=== PATIENT | female | born 1965 | race Caucasian/White ===

== ENCOUNTER 2021-08-28 14:02 | Emergency (ER) | payer BC, OTHER ==
--- OUTSIDE RECORDS SUMMARY | 2021-08-28 14:07 | XMS REPORT | Continuity of Care Document ---
:1965 Author Organization [facility] t Address [address] [place] [address] Care Team Providers Name Role Phone Omi SAEED Attending Clinician Unavailable Nader MYRICK D Attending Clinician Unavailable [facility] Attending Clinician Unavailable Griffin YORK Attending Clinician Payers Payer Name Policy Type Policy Number Effective Date Expiration Date S ource [facility] - [id number] 2019 OUT OF STATE 00:00:00 SRC AN [employer]ET[employer] [id number] 2012 COMPANY 00:00:00 Problems Condition Condition Condition Status Onset Resolution Last Treating Co mments Source Name Details Category Date Date Treatment Clinician Date No known No known Disease Unive rs active active ity of problems problems [facility] Allergies, Adverse Reactions, Alerts Allergy Allergy Status Severity Reaction(s) Onset Inactive Treating Comm ents Source Name Type Date Date Clinician SULFA Drug Active N/V Univers (SULFONA Class 9-29 ity of MIDE 00:00: [place] ANTIBIOT 00 Medical ICS) Branch Sulfa Propensi Active Nausea Univers (Sulfona ty to and/or 9-29 ity of mide adverse Vomiting 00:00: [place] Antibiot reaction 00 Medica l ics) s Branch Social History Social Habit Start Date Stop Date Quantity Comments Source Sex Assigned At [facility] Medical Branch Exposure to Yes [facility] SARS-CoV-2 (event) Medica l Branch Alcohol intake 2020-03-17 2020-03-17 [facility] 00:00:00 00:00:00 Medical Branch Smoking Status Start Date Stop Date Source Never smoker [facility] Medical Branch Medications Ordered Filled Start Stop Current Ordering Indication Dosage Frequency Signature Comments Components Source Medication Medication Date Date Medication? Clinician (SIG) Name Name cyclobenzap Yes TAKE 1 Univ ers rine 9-19 TABLET BY ity of (FLEXERIL) 00:00[place] 5 [place] tablet 00 TIMES A Medic al DAY Branch NEEDED FOR MUSCLE SPASM ibuprofen Yes TAKE 1 Univer s (MOTRIN) 9-19 TABLET BY ity of 800 mg 00:00: MOUTH [place] tablet 00 EVERY 8 Medical HOURS Branch NEEDED FOR PAIN CONTROL cyclobenzap Yes TAKE 1 Univ ers rine 9-19 TABLET BY ity of (FLEXERIL) 00:00: [place]TH 3 [place] 5 mg tablet 00 TIMES A Medic al DAY Branch NEEDED FOR MUSCLE SPASM ibuprofen Yes TAKE 1 Univer s (MOTRIN) 9-19 TABLET BY ity of 800 mg 00:00: MOUTH [place] tablet 00 EVERY 8 Medical HOURS Branch NEEDED FOR PAIN CONTROL zolpidem Yes TAKE 1 Univers (AMBIEN) 5 9-16 TABLET BY ity of mg tablet 00:00[place] 00 BEDTIME [place] Branch zolpidem Yes TAKE 1 Univers (AMBIEN) 5 9-16 TABLET BY ity of mg tablet 00:00[place]TH [place] 00 BEDTIME [place] Branch atorvastati Yes 10mg Take 10 mg Univers n (LIPITOR) 9-15 by mouth ity of 10 mg 00:00: daily. [place] tablet Medical Branch atorvastati Yes 10mg Take 10 mg Univers n (LIPITOR) 9-15 by mouth ity of 10 mg 00:00: daily. [place] tablet 00 Medical Branch PREMARIN Yes TAKE 1 Univers 0.625 mg 8-18 TABLET ity of tablet 00:00: EVERY DAY Medical Branch metoprolol Yes 100mg Take 100 Un valentine succinate 8-18 mg by ity of XL (TOPROL 00:00: mouth [place] XL) 100 mg 00 daily. Medical 24 hr Branch tablet PREMARIN Yes TAKE 1 Univers 0.625 mg 8-18 TABLET ity of tablet 00:00: EVERY DAY Medical Branch metoprolol Yes 100mg Take 100 Un valentine succinate 8-18 mg by ity of XL (TOPROL 00:00: mouth [place] XL) 100 mg 00 daily. Medical 24 hr Branch tablet levothyroxi Yes TAKE 1 Univ ers ne 7-17 TABLET ity of (SYNTHROID) 00:00: EVERY DAY [place] 125 mcg 00 Medical tablet Branch VICTOZA Yes INJECT 1.8 Univ ers 3-DUSTIN 0.6 7-17 MG ity of mg/0.1 mL 00:00: [place] (18 mg/3 00 USLY EVERY Medic al mL) DAY Branch injection levothyroxi Yes TAKE 1 Univ ers ne 7-17 TABLET ity of (SYNTHROID) 00:00: EVERY DAY [place] 125 mcg 00 Medical tablet Branch VICTOZA Yes INJECT 1.8 Univ ers 3-DUSTIN 0.6 7-17 MG ity of mg/0.1 mL 00:00[place] (18 mg/3 00 USLY EVERY Medic al mL) DAY Branch injection Vital Signs Vital Name Observation Time Observation Value Comments Source Systolic blood 2020-03-17 21:19:00 164 mm[Hg] Univer sity of pressure [facility] Diastolic blood 2020-03-17 21:19:00 96 mm[Hg] [facility] Heart rate 2020-03-17 21:16:00 54 /min [facility] Body temperature 2020-03-17 21:16:00 36.83 Marisa [facility] Respiratory rate 2020-03-17 21:16:00 17 /min [facility] Body height 2020-03-17 21:16:00 149.9 cm [facility] Body weight 2020-03-17 21:16:00 68.947 kg [facility] BMI 2020-03-17 21:16:00 30.70 kg/m2 [facility] Oxygen saturation in 2020-03-17 21:16:00 97 /min [facility] blood by [facility] Pulse oximetry Branch Procedures This patient has no known procedures. Encounters Start End Encounter Admission Attending Care Care Encounter Source Date/Time Date/Time Type Type Clinicians Facility Department ID 2021-01-10 2021-01-10 Outpatient [facility] [id number] Univers 18:05:00 18:05:00 ity [facility] 2020-12-20 2020-12-20 Outpatient Armand SAEED [facility] [id number] Univers 18:10:00 18:10:00 DELMI ity of [facility] 2020-03-18 2020-03-18 Telephone DUNIA Doe [id number] Univers 00:00:00 00:00:00 Mikaela Kalyan HARRELL [id number] i ty of [facility] [id number] Alvin as [id number] [address] 2020-03-17 2020-03-17 Urgent Pob1, Acute Care Clinic [facility] [id number] Univers 16:09:11 16:30:07 Care Griffin [facility] [id number] ity [facility] [id number] Alvin as [place] [id number] [address] 2020-03-17 2020-03-17 Outpatient [facility] [id number] Univers 16:20:00 16:20:00 [id number] ity [facility] 2020-03-17 2020-03-17 Outpatient R [facility] [id number] Univers 16:20:00 16:20:00 [facility] Results This patient has no known results.
[2021-08-28] MEDS ORDERED: ONDANSETRON 4 MG/2 ML VIAL ONE (16:35)
[2021-08-28] MEDS ORDERED: HYDRALAZINE HCL 20 MG/ML VIAL ONE (16:35)
[2021-08-28] MEDS ORDERED: NA CHLORIDE 0.9% 500 ML ONE (16:36)
[2021-08-28 17:23] LABS: Absolute Lymphocytes (CBC) 1.8 K/uL (0.7-4.9); Hematocrit 44.8 % (36.0-45.0); Lymphocytes % 28.7 % (15.3-44.8); MPV 8.3 fL (7.6-11.3); Protime INR 0.92; RBC Red Blood Cell Count 5.01 M/uL (3.86-4.86)
[2021-08-28 17:40] LABS: ALT/SGPT 21 U/L (12-78); AST/SGOT 16 U/L (15-37); Albumin 3.6 g/dL (3.4-5.0); Alkaline Phosphatase 69 U/L (45-117); BUN Blood Urea Nitrogen 15 mg/dL (7-18); Bicarbonate 25 mmol/L (21-32); Bilirubin Direct < 0.1 mg/dL (0-0.2); Bilirubin Total 0.4 mg/dL (0.2-1.0); Glucose Level 83 mg/dL (74-106); Magnesium 2.3 mg/dL (1.8-2.4); NT PRO-BNP 146 pg/mL (<125); Potassium 3.8 mmol/L (3.5-5.1); Protein, Total 7.3 g/dL (6.4-8.2); Sodium Level 142 mmol/L (136-145); Troponin (Emerg Dept Use Only) < 0.02 ng/mL (0.0-0.045)
[2021-08-28] MEDS ORDERED: ACETAMINOPHEN 500 MG TAB ONE (17:55)
[2021-08-28 18:02] LABS: Urine Blood Negative (Negative); Urine Glucose Negative (Negative); Urine Protein Negative (Negative); Urine Specific Gravity 1.015 (1.005-1.030); Urine pH 5.5 (5.0-7.0)
--- NOTE | 2021-08-28 18:08 | RAD REPORT ---
EXAM DESCRIPTION: CT - Head Brain Wo Cont - 08/28/2021 5:54 pm CLINICAL HISTORY: Headache COMPARISON: None. TECHNIQUE: Computed axial tomography of the head was obtained. IV contrast was not requested. All CT scans are performed using dose optimization technique as appropriate and may include automated exposure control or mA/KV adjustment according to patient size. FINDINGS: An intracranial bleed is not seen . The ventricles are normal in caliber. No extra-axial fluid collection is noted. Empty sella turcica Fluid within the sinuses/ mastoids is not seen. IMPRESSION: No acute intracranial abnormality is seen. If patient's symptoms persist MRI of the bra in would be recommended.
--- NOTE | 2021-08-28 18:13 | RAD REPORT ---
EXAM DESCRIPTION: CT - Abdomen Pelvis W Contrast - 08/28/2021 6:00 pm CLINICAL HISTORY: Abdominal pain COMPARISON: 2008 TECHNIQUE: Computed axial tomography of the abdomen pelvis was obtained. 100 cc Isovue-300 was admin istered intravenously. Oral contrast was not requested which limits evaluation of bowel. All CT scans are performed using dose optimization technique as appropriate and may include automated exposure control or mA/KV adjustment according to patient size. FINDINGS: The liver, spleen, pancreas, adrenal and kidneys appear unremarkable. There is no evidence of diverticulitis. Normal appendix Hysterectomy. No adnexal mass. Atrophy of the right rectus abdominis muscle IMPRESSION: No acute abnormality is displayed.
--- NOTE | 2021-08-28 18:30 | ER ---
Nurse's Notes [facility] Name: Charis Julio Age: 55 yrs Sex: Female : 1965 Arrival Date: 08/28/2021 Time: 14:09 Bed 2 Private MD: Diagnosis: Hypertensive heart disease without heart failure;Headache Presentation: 08/28 14:34 Chief complaint: Patient states: "My BP through the night was running 222/124 and then ss it went down to 180/??? and my ears are bleeding. I noticed that last night. I mean, I could have an ear infection.". Coronavirus screen: Client denies travel out of the [place] in the last 14 days. Ebola Screen: Patient denies exposure to infectious person. Patient denies travel to an Ebola-affected area in the 21 days before illness onset. Initial Sepsis Screen: Does the patient meet any 2 criteria? No. Patient's initial sepsis screen is negative. Does the patient have a suspected source of infection? No. Patient's initial sepsis screen is negative. Risk Assessment: Do you want to hurt yourself or someone else? Patient reports no desire to harm self or others. Onset of symptoms was August 27, 2021. 14:34 Method Of Arrival: Ambulatory ss 14:34 Acuity: SUDARSHAN 2 ss Historical: - Allergies: 14:37 Sulfa (Sulfonamide Antibiotics); ss 14:37 Codeine; ss - PMHx: 14:37 Hypertension; Hypothyroidism; ss - Immunization history:: Client reports receiving the 2nd dose of the Covid vaccine. - Social history:: Smoking status: Patient denies any tobacco usage or history of. Screenin:30 Abuse screen: Denies threats or abuse. Nutritional screening: No deficits noted. ll3 Tuberculosis screening: No symptoms or risk factors identified. Fall Risk IV access (20 points). Assessment: 14:30 General: Appears in no apparent distress. uncomfortable, Behavior is calm, cooperative, ll3 anxious. Pain: Denies pain. Neuro: Level of Consciousness is awake, alert, obeys commands, Oriented to person, place, time, situation, Gait is steady, Speech is normal, Facial symmetry appears normal, Reports. Cardiovascular: Patient's skin is warm and dry. Respiratory: Airway is patent Trachea midline Respiratory effort is even, unlabored, Respiratory pattern is regular, symmetrical. Derm: Skin is pink, warm \\T\\ dry. 17:30 Reassessment: Patient appears in no apparent distress at this time. No changes from ll3 previously documented assessment. Patient and/or family updated on plan of care and expected duration. Pain level reassessed. Patient is alert, oriented x 3, equal unlabored respirations, skin warm/dry/pink. 18:18 Reassessment: Patient appears in no apparent distress at this time. No changes from jl7 previously documented assessment. Patient and/or family updated on plan of care and expected duration. Pain level reassessed. Patient is alert, oriented x 3, equal unlabored respirations, skin warm/dry/pink. Patient states feeling better. Vital Signs: 14:34 BP 195 / 111; Pulse 48; Resp 16; Temp 98.2(O); Pulse Ox 98% ; Weight 68.04 kg; Height 4 ss ft. 11 in. (149.86 cm); Pain 0/10; 16:30 BP 160 / 77; Pulse 43; Resp 17; Pulse Ox 100% on R/A; ll3 16:39 BP 179 / 102; Pulse 46; Resp 18; Pulse Ox 99% on R/A; ll3 17:27 BP 133 / 83; Pulse 66; Resp 15; Pulse Ox 100% ; jl7 18:17 BP 148 / 86; Pulse 59; Resp 14; Pulse Ox 100% on R/A; jl7 14:34 Body Mass Index 30.30 (68.04 kg, 149.86 cm) ED Course: 14:09 Patient arrived in ED. mr 14:37 Triage completed. ss 14:37 Arm band placed on right wrist. ss 16:08 Delon Yang PA is PHCP. cp 16:08 Emanuel Brewer MD is Attending Physician. cp 16:33 Lauri Levin, ELEN is Primary Nurse. ll3 16:56 XRAY Chest (1 view) In Process Unspecified. EDMS 17:31 Patient has correct armband on for positive identification. Bed in low position. Call ll3 light in reach. Side rails up X 1. 17:31 Basic Metabolic Panel Sent. ll3 17:31 CBC with Diff Sent. ll3 17:54 CT Head Brain wo Cont In Process Unspecified. EDMS 18:00 CT Abd/Pelvis - IV Contrast Only In Process Unspecified. EDMS 18:41 No provider procedures requiring assistance completed. IV discontinued, intact, jl7 bleeding controlled, No redness/swelling at site. Pressure dressing applied. Administered Medications: 16:40 Drug: Zofran (Ondansetron) 4 mg Route: IVP; Site: right antecubital; ll3 17:53 Follow up: Response: No adverse reaction ll3 16:40 Drug: NS 0.9% 500 ml Route: IV; Rate: bolus; Site: right antecubital; ll3 18:17 Follow up: Response: No adverse reaction; IV Status: Completed infusion; IV Intake: jl7 500ml 16:45 Drug: hydrALAZINE 10 mg Route: IVP; Site: right antecubital; ll3 17:53 Follow up: Response: No adverse reaction; Marked relief of symptoms ll3 18:16 Drug: Tylenol 1000 mg Route: PO; jl7 18:41 Follow up: Response: No adverse reaction jl7 Intake: 18:17 IV: 500ml; Total: 500ml. jl7 Outcome: 18:28 Discharge ordered by MD. clau 18:41 Discharged to home ambulatory. jl7 18:41 Condition: stable 18:41 Discharge instructions given to patient, Instructed on discharge instructions, follow up and referral plans. medication usage, Demonstrated understanding of instructions, follow-up care, medications, Prescriptions given X 2. 18:42 Patient left the ED. jl7 Signatures: Dispatcher [employer] EDVT Diana Brown Sunitha RN Delon Gaming PA PA cp Leal, Jahala, RN RN jl7 Lauri Levin RN RN ll3 Corrections: (The following items were deleted from the chart) 17:30 17:26 General: Appears in no apparent distress. uncomfortable, Behavior is calm, ll3 cooperative, anxious, ll3 17:30 17:26 Pain: Denies pain. ll3 ll3 17:30 17:26 Neuro: Level of Consciousness is awake, alert, obeys commands, Oriented to ll3 person, place, time, situation, Gait is steady, Speech is normal, Facial symmetry appears normal, Reports ll3 17:30 17:26 Cardiovascular: Patient's skin is warm and dry. ll3 ll3 17:30 17:26 Respiratory: Airway is patent Trachea midline Respiratory effort is even, ll3 unlabored, Respiratory pattern is regular, symmetrical, ll3 17:30 14:30 Derm: Skin is pink, warm \\T\\ dry. ll3 ll3
--- NOTE | 2021-08-28 18:30 | EDPHYS ---
Physician Documentation [facility] Name: Charis Julio Age: 55 yrs Sex: Female : 1965 Arrival Date: 08/28/2021 Time: 14:09 Bed 2 Private MD: ED Physician Emanuel Brewer HPI: 08/28 16:35 This 55 yrs old Female presents to ER via Ambulatory with complaints of High Blood cp Pressure, Drainage From Ear. 16:35 The patient has elevated blood pressure and discovered this at home, with a home device.cp 16:35 Onset: The symptoms/episode began/occurred yesterday. cp 16:35 Severity of symptoms: At its worst the blood pressure was 222 mm Hg. cp 16:35 Associated signs and symptoms: Pertinent positives: headache, nausea, abdominal pain, cp Pertinent negatives: chest pain. Historical: - Allergies: 14:37 Sulfa (Sulfonamide Antibiotics); ss 14:37 Codeine; ss - PMHx: 14:37 Hypertension; Hypothyroidism; ss - Immunization history:: Client reports receiving the 2nd dose of the Covid vaccine. - Social history:: Smoking status: Patient denies any tobacco usage or history of. ROS: 16:40 Constitutional: Negative for body aches, chills, fever, poor PO intake. cp 16:40 Eyes: Negative for injury, pain, redness, and discharge. cp 16:40 ENT: Positive for bloody drainage from ear canals, Negative for ear pain, sore throat, difficulty swallowing, difficulty handling secretions. 16:40 Neck: Negative for pain with movement, pain at rest, stiffness. 16:40 Cardiovascular: Negative for chest pain, edema, palpitations. 16:40 Respiratory: Negative for cough, shortness of breath, wheezing. 16:40 Abdomen/GI: Positive for abdominal pain, Negative for nausea, vomiting, and diarrhea. 16:40 Back: Negative for pain at rest, pain with movement. 16:40 MS/extremity: Positive for pain, of the left shoulder, Negative for injury or acute deformity, decreased range of motion, paresthesias. 16:40 Neuro: Positive for headache, Negative for altered mental status, dizziness, loss of consciousness, syncope, weakness. 16:40 All other systems are negative. Exam: 16:35 ECG was reviewed by the Attending Physician. cp 16:45 Constitutional: The patient appears in no acute distress, alert, awake, cp non-diaphoretic, non-toxic, well developed, well nourished. 16:45 Head/Face: Normocephalic, atraumatic. cp 16:45 Eyes: Periorbital structures: appear normal, Pupils: equal, round, and reactive to light and accomodation, Extraocular movements: intact throughout, Conjunctiva: normal, no exudate, no injection, Sclera: no appreciated abnormality, Lids and lashes: appear normal, bilaterally. 16:45 ENT: External ear(s): are unremarkable, Ear canal(s): bloody discharge, that is minimal, bilaterally, TM's: dullness, bilaterally, Nose: is normal, Mouth: Lips: moist, Oral mucosa: pink and intact, moist, Posterior pharynx: Airway: no evidence of obstruction, patent. 16:45 Neck: C-spine: vertebral tenderness, is not appreciated, crepitus, is not appreciated, ROM/movement: is normal, is supple, without pain, no range of motions limitations, no meningismus, no nuchal rigidity. 16:45 Chest/axilla: Inspection: normal, Palpation: is normal, no crepitus, no tenderness. 16:45 Cardiovascular: Rate: bradycardic, Rhythm: regular, Edema: is not appreciated, JVD: is not appreciated. 16:45 Respiratory: the patient does not display signs of respiratory distress, Respirations: normal, no use of accessory muscles, no retractions, labored breathing, is not present, Breath sounds: are clear throughout, no decreased breath sounds, no stridor, no wheezing. 16:45 Abdomen/GI: Inspection: abdomen appears normal, Bowel sounds: active, all quadrants, Palpation: soft, in all quadrants, mild abdominal tenderness, in the anterior aspect of right lateral abdomen, rebound tenderness, is not appreciated, involuntary guarding, is not appreciated. 16:45 Back: pain, is absent, ROM is normal. 16:45 Neuro: Orientation: to person, place \T\ time. Mentation: is normal, Motor: moves all fours, strength is normal, Sensation: is normal. Vital Signs: 14:34 BP 195 / 111; Pulse 48; Resp 16; Temp 98.2(O); Pulse Ox 98% ; Weight 68.04 kg; Height 4 ss ft. 11 in. (149.86 cm); Pain 0/10; 16:30 BP 160 / 77; Pulse 43; Resp 17; Pulse Ox 100% on R/A; ll3 16:39 BP 179 / 102; Pulse 46; Resp 18; Pulse Ox 99% on R/A; ll3 17:27 BP 133 / 83; Pulse 66; Resp 15; Pulse Ox 100% ; jl7 18:17 BP 148 / 86; Pulse 59; Resp 14; Pulse Ox 100% on R/A; jl7 14:34 Body Mass Index 30.30 (68.04 kg, 149.86 cm) ss MDM: 16:24 Patient medically screened. cp 17:00 Differential diagnosis: hypertensive crisis, Malignant HTN, CVA, intracerebral cp hemorrhage. 18:25 Data reviewed: vital signs, nurses notes, lab test result(s), EKG, radiologic studies, cp CT scan, plain films. 18:25 Test interpretation: by ED physician or midlevel provider: ECG, plain radiologic cp studies. Counseling: I had a detailed discussion with the patient and/or guardian regarding: the historical points, exam findings, and any diagnostic results supporting the discharge/admit diagnosis, the presence of at least one elevated blood pressure reading (>120/80) during this emergency department visit, lab results, radiology results, the need for outpatient follow up, for definitive care, a family practitioner, to return to the emergency department if symptoms worsen or persist or if there are any questions or concerns that arise at home. Response to treatment: the patient's symptoms have markedly improved after treatment, and as a result, I will discharge patient. ED course: VSS. Blood pressure markedly improved. Will discharge to home for continued monitoring. 08/28 16:32 Order name: Basic Metabolic Panel 08/28 16:32 Order name: CBC with Diff 08/28 16:32 Order name: LFT's; Complete Time: 17:57 cp 08/28 17:58 Interpretation: Normal except: GLOB 3.7; A/G 1.0. cp 08/28 16:32 Order name: Magnesium; Complete Time: 17:57 cp 08/28 16:32 Order name: NT PRO-BNP; Complete Time: 17:57 cp 08/28 16:32 Order name: PT-INR; Complete Time: 17:34 cp 08/28 16:32 Order name: Troponin (emerg Dept Use Only); Complete Time: 17:57 08/28 17:58 Interpretation: Reviewed. 08/28 16:32 Order name: XRAY Chest (1 view) 08/28 16:32 Order name: CT Head Brain wo Cont; Complete Time: 18:23 08/28 18:23 Interpretation: Report reviewed. 08/28 16:32 Order name: CT Abd/Pelvis - IV Contrast Only; Complete Time: 18:23 08/28 18:23 Interpretation: Report reviewed. 08/28 16:32 Order name: Basic Metabolic Panel; Complete Time: 17:57 EDMS 08/28 17:58 Interpretation: Normal except: CL 108. 08/28 16:32 Order name: CBC with Automated Diff; Complete Time: 17:34 EDMS 08/28 17:35 Interpretation: Normal except: RBC 5.01; HGB 15.1. 08/28 18:02 Order name: Urine Dipstick-Ancillary; Complete Time: 18:23 EDMS 08/28 18:23 Interpretation: Reviewed. 08/28 16:32 Order name: EKG; Complete Time: 16:33 08/28 16:32 Order name: Cardiac monitoring; Complete Time: 16:34 08/28 16:32 Order name: EKG - Nurse/Tech; Complete Time: 16:34 08/28 16:32 Order name: IV Saline Lock; Complete Time: 17:18 08/28 16:32 Order name: Labs collected and sent; Complete Time: 17:18 08/28 16:32 Order name: O2 Per Protocol; Complete Time: 16:34 08/28 16:32 Order name: O2 Sat Monitoring; Complete Time: 16:34 08/28 16:32 Order name: Urine Dipstick-Ancillary (obtain specimen); Complete Time: 18:18 cp EC:35 Rate is 43 beats/min. Rhythm is regular. VT interval is normal. QRS interval is normal. cp QT interval is normal. T waves are Inverted in leads III, aVR. Interpreted by me. Reviewed by me. Administered Medications: 16:40 Drug: Zofran (Ondansetron) 4 mg Route: IVP; Site: right antecubital; ll3 17:53 Follow up: Response: No adverse reaction ll3 16:40 Drug: NS 0.9% 500 ml Route: IV; Rate: bolus; Site: right antecubital; ll3 18:17 Follow up: Response: No adverse reaction; IV Status: Completed infusion; IV Intake: jl7 500ml 16:45 Drug: hydrALAZINE 10 mg Route: IVP; Site: right antecubital; ll3 17:53 Follow up: Response: No adverse reaction; Marked relief of symptoms ll3 18:16 Drug: Tylenol 1000 mg Route: PO; jl7 18:41 Follow up: Response: No adverse reaction jl7 Disposition: 18:43 Co-signature as Attending Physician, Emanuel Brewer MD I agree with the assessment and kdr plan of care. Disposition Summary: 08/28/21 18:28 Discharge Ordered Location: Home cp Problem: new cp Symptoms: have improved cp Condition: Stable cp Diagnosis - Hypertensive heart disease without heart failure cp - Headache cp Followup: cp - With: Private Physician - When: 2 - 3 days - Reason: Recheck today's complaints Discharge Instructions: - Discharge Summary Sheet cp - General Headache Without Cause cp - Hypertension, Adult cp - Form - Blood Pressure Record Sheet cp Forms: - Medication Reconciliation Form cp - Thank You Letter cp - Antibiotic Education cp - Prescription Opioid Use cp Prescriptions: - Lisinopril 10 mg Oral Tablet - take 1 tablet by ORAL route once daily; 20 tablet; Refills: 0, Product cp Selection Permitted - Cortisporin-TC 3.3-3-10-0.5 mg/mL Otic drops,suspension - instill 4 drops by OTIC route every 6 hours for 5 days instill drops in each cp ear canal as directed; 1 bottle; Refills: 0, Product Selection Permitted Signatures: Dispatcher [facility] Emanuel Brewer MD MD kdr Sunitha Bravo RN RN Delon Newman PA PA cp Mera Bateman RN RN jl7 Lauri Levin RN RN ll3 Corrections: (The following items were deleted from the chart) 16:37 16:32 Urine Test ordered. [facility]7
--- NOTE | 2021-08-28 18:37 | RAD REPORT ---
EXAM DESCRIPTION: Sarah Single View08/28/2021 4:56 pm CLINICAL HISTORY: Chest pain/shoulder pain COMPARISON: none FINDINGS: The lungs appear clear of acute infiltrate. The heart is normal size. Mild osteoarthritis involves the AC joints. 21 millimeter lucency is present within the left humeral head. IMPRESSION: 21 millimeter lucency within left humeral head may represent a pseudo lesion secondary to superimposition of trabecula or a true lesion. It is recommended that the patient have x-rays of t he left shoulder for further evaluation. Comparison view of the right shoulder should also be obtaine d.
[2021-08-28 18:48] VITALS: TEMP 98.2
[2021-08-28 18:52] VITALS: O2SAT 100
[2021-08-28 18:53] VITALS: BP 148/86
== END 2021-08-28 18:42 | disposition home or self-care (01) ==
LOC: ER 14:02
DX: I11.9 Hypertensive heart disease without heart failure (principal); I10 Essential (primary) hypertension; Z88.2 Allergy status to sulfonamides; Z88.5 Allergy status to narcotic agent
CPT/HCPCS: 96361; 93005; 85025; 80048; 36415; 83735; 85610; 80076; 81003; 84484; 83880; 70450; 74177; 71045; 96375; 96374; 99284; Q9967; J0360; J7040; J2405